=== PATIENT | male | born 1950 | race Caucasian/White ===

== ENCOUNTER 2017-08-28 09:44 | Emergency (ER) | payer MEDICARE, MEDICAID ==
[~2017-08-28] VITALS: Ht 185.4 cm; Wt 147.0 kg
[2017-08-28] MEDS ORDERED: NS IV 500 ML 500 ML IV ONE (10:02)
--- NOTE | 2017-08-28 10:14 | ED GI ---
General Chief Complaint: Abdominal/GI Problems Stated Complaint: NAUSEA Source of Information: Patient, EMS Exam Limitations: No Limitations History of Present Illness Date Seen by Provider: Aug 28, 2017 Time Seen by Provider: 09:55 Initial Comments Patient presents the ER by EMS with chief complaint that while he was at home where he lives alone this morning he ate breakfast correa and eggs and toast and take his medications and then felt a strong wave of nausea. He did not vomit. He has a history of having his stomach stapled so vomiting is very tough for him. He says about time he got into the truck with EMS to come to the ER though the nausea had subsided. He does not have any nausea medicine at home and does not typically have this. Patient denies any chest pain however he did say he had increased shortness of breath. He has a history of COPD and has home oxygen 2 L by nasal cannula from an oxygen concentrator that he says he'll use for usually half an hour to an hour a day just when he feels he needs it. EMS says his vitals were normal sats were in the low 90s on room air and he did not have a fever. They did not give him any medicine because he did not have any vomiting. Patient states that his swollen red legs are pretty much at baseline for him. He says a few months ago he was taken off his Lasix for the swelling wasn't making any difference. Patient denies any history of coronary disease. Besides COPD he is also a smoker who quit tobacco a year ago but still vapes. He has high blood pressure and a history of hypercholesterolemia. Presently he says he is without nausea or shortness of breath. He typically walks using a cane but cannot be up for a longer period he'll use a walker. He denies any wheezing or cough. No fevers, chills or body aches or malaise. He also denies a history of diabetes. Allergies and Home Medications Allergies Coded Allergies: No Known Drug Allergies (Unverified , 08/28/17) Review of Systems Constitutional: No chills, No diaphoresis, No fever, No malaise EENTM: No Blurred Vision, No Double Vision, No Eye Pain Respiratory: Denies Cough, Shortness of Air, Denies Wheezing Cardiovascular: Denies Chest Pain, Edema, Denies Irregular Heart Rate, Denies Palpitations, Denies Syncope Gastrointestinal: Denies Abdomen Distended, Denies Abdominal Pain, Denies Constipated, Denies Diarrhea, Nausea, Denies Vomiting Genitourinary: Denies Burning, Denies Discharge Musculoskeletal: No back pain, No joint pain Past Zlcolzc-Tybccl-Ekcjyl Hx Patient Social History Recreational Drug Use: No Smoking Status: Current Everyday Smoker Type Used: Cigarettes (vapes) Physical Exam Vital Signs VS - Last 72 Hours, by Label 08/28/17 09:49 Temp 97.0 Pulse 88 Resp 22 B/P (MAP) 155/90 (111) Pulse Ox 93 O2 Delivery Nasal Cannula O2 Flow Rate 2.00 Capillary Refill : General Appearance: WD/WN, no apparent distress HEENT: PERRL/EOMI, TMs normal, pharynx normal (oropharynx is dry) Neck: non-tender, full range of motion, supple, normal inspection Respiratory: chest non-tender, lungs clear, no respiratory distress, no accessory muscle use, decreased breath sounds Cardiovascular: normal peripheral pulses, regular rate, rhythm Peripheral Pulses: 1+ Dorsalis Pedis (R), 1+ Left Dors-Pedis (L), 2+ Radial Pulses (R), 2+ Radial Pulses (L) Gastrointestinal: normal bowel sounds, non tender, soft Extremities: other (bilateral lower extremities are erythematous, swollen 1+ edema and have multiple excoriations and stasis dermatitis ulcers in various states of healing. No discharge or drainage.) Neurologic/Psychiatric: no motor/sensory deficits, alert, normal mood/affect, oriented x 3 Progress/Results/Core Measures Results/Orders Lab Results Laboratory Tests Test 08/28/17 10:05 08/28/17 10:20 Range/Units White Blood Count 10.0 4.3-11.0 10^3/uL Red Blood Count 4.22 L 4.35-5.85 10^6/uL Hemoglobin 10.4 L 13.3-17.7 G/DL Hematocrit 34 L 40-54 % Mean Corpuscular Volume 80 80-99 FL Mean Corpuscular Hemoglobin 25 25-34 PG Mean Corpuscular Hemoglobin Concent 31 L 32-36 G/DL Red Cell Distribution Width 17.4 H 10.0-14.5 % Platelet Count 174 130-400 10^3/uL Mean Platelet Volume 10.0 7.4-10.4 FL Neutrophils (%) (Auto) 69 42-75 % Lymphocytes (%) (Auto) 24 12-44 % Monocytes (%) (Auto) 6 0-12 % Eosinophils (%) (Auto) 1 0-10 % Basophils (%) (Auto) 0 0-10 % Neutrophils # (Auto) 6.9 1.8-7.8 X 10^3 Lymphocytes # (Auto) 2.4 1.0-4.0 X 10^3 Monocytes # (Auto) 0.6 0.0-1.0 X 10^3 Eosinophils # (Auto) 0.1 0.0-0.3 10^3/uL Basophils # (Auto) 0.0 0.0-0.1 10^3/uL Sodium Level 138 135-145 MMOL/L Potassium Level 4.0 3.6-5.0 MMOL/L Chloride Level 101 98-107 MMOL/L Carbon Dioxide Level 26 21-32 MMOL/L Anion Gap 11 5-14 MMOL/L Blood Urea Nitrogen 9 7-18 MG/DL Creatinine 0.85 0.60-1.30 MG/DL Estimat Glomerular Filtration Rate > 60 BUN/Creatinine Ratio 11 Glucose Level 129 H 70-105 MG/DL Calcium Level 8.6 8.5-10.1 MG/DL Magnesium Level 1.7 L 1.8-2.4 MG/DL Total Bilirubin 0.8 0.1-1.0 MG/DL Aspartate Amino Transf (AST/SGOT) 19 5-34 U/L Alanine Aminotransferase (ALT/SGPT) 19 0-55 U/L Alkaline Phosphatase 98 40-136 U/L Troponin I < 0.30 <0.30 NG/ML C-Reactive Protein High Sensitivity 2.56 H 0.00-0.50 MG/DL B-Type Natriuretic Peptide 52.3 <100.0 PG/ML Total Protein 7.1 6.4-8.2 GM/DL Albumin 3.6 3.2-4.5 GM/DL Urine Color YELLOW Urine Clarity CLEAR Urine pH 7 5-9 Urine Specific [place] 1.005 L 1.016-1.022 Urine Protein NEGATIVE NEGATIVE Urine Glucose (UA) NEGATIVE NEGATIVE Urine Ketones NEGATIVE NEGATIVE Urine Nitrite NEGATIVE NEGATIVE Urine Bilirubin NEGATIVE NEGATIVE Urine Urobilinogen 1 NORMAL MG/DL Urine Leukocyte Esterase NEGATIVE NEGATIVE Urine RBC (Auto) NEGATIVE NEGATIVE Urine RBC NONE /HPF Urine WBC NONE /HPF Urine Squamous Epithelial Cells 0-2 /HPF Urine Crystals NONE /LPF Urine Bacteria NEGATIVE /HPF Urine Casts NONE /LPF Urine Mucus NEGATIVE /LPF Urine Culture Indicated NO My Orders Orders - DAVIE MANE Chest Pa/Lat (2 View) (08/28/17 10:02) BNP (08/28/17 10:02) Cbc With Automated Diff (08/28/17 10:02) Comprehensive Metabolic Panel (08/28/17 10:02) Hs C Reactive Protein (08/28/17 10:02) Magnesium (08/28/17 10:02) Troponin I (08/28/17 10:02) Ua Culture If Indicated (08/28/17 10:02) Saline Lock/Iv-Start (08/28/17 10:02) Ns Iv 500 Ml (Sodium Chloride 0.9%) (08/28/17 10:02) Ekg Tracing (08/28/17 10:02) Continuous Ekg Monitoring (08/28/17 10:02) Ua Culture If Indicated (08/28/17 10:16) Albuterol/Ipra Inhalation Soln (Duoneb I (08/28/17 10:30) Svn Sm Volume Nebulizer Rt-Rfs (08/28/17 10:18) Vital Signs/I&O Vital Sign - Last 12Hours 08/28/17 09:49 Temp 97.0 Pulse 88 Resp 22 B/P (MAP) 155/90 (111) Pulse Ox 93 O2 Delivery Nasal Cannula O2 Flow Rate 2.00 Progress Note : Time: 11:05 Progress Note Aseptic vital signs. Isolated wave of nausea with a normal troponin, EKG, liver enzymes, no abdominal pain or Isidro sign. His legs are red and swollen but they 're bilateral so there was some concern for cellulitis but his CRP and white count are not elevated significantly. We'll have him follow-up closely in the next 1-2 weeks with his primary care physician or return to the ER with strict return precautions. He does have a prolonged QTC so will be very cautious using the Zofran. Nausea could also be caused by hypoxia and the patient has dipped down in the upper 80s several times whenever he becomes somnolent. However his nausea came after he got done eating and taking his meds he did not describe that he was sleeping at the time. It's possible a patient's suffering with obesity hypoventilation syndrome versus obstructive sleep apnea and may need outpatient workup for these. ECG Initial ECG Impression Date: Aug 28, 2017 Initial ECG Impression Time: 09:53 Initial ECG Rate: 87 Initial ECG Rhythm: Normal Sinus Initial ECG Intervals: QT (515) Initial ECG Impression: Nonspecific Changes Initial ECG Comparisson: No Previous ECG Available Comment No T-wave elevation or depression. Diagnostic Imaging Diagonstic Imaging: Xray Plain Films/CT/US/NM/MRI: chest (2v) Comments Postoperative changes the cervical spine. No acute cardiopulmonary processes noted. Reviewed: Reviewed by Me Departure Impression Impression: Primary Impression: Nausea alone Disposition: 01 HOME, SELF-CARE Condition: Improved Departure-Patient Inst. Decision time for Depature: 11:08 Referrals: AMINA BREAUX MD (PCP/Family) Primary Care Physician Patient Instructions: Nausea and Vomiting, Adult Add. Discharge Instructions: Please follow up with your primary care physician in the next 1-2 weeks. When you see him discuss whether or not you need a sleep study or other workup for OHS/NICKI. If you are having nausea again you can take one tablet of Zofran place it on your tongue allowed to absorb your mouth every 8 hours as needed. If you begin to have fevers chills, chest pain, shortness of breath or other worrisome symptoms please return to the ER immediately. All discharge instructions reviewed with patient and/or family. Voiced understanding. Scripts Ondansetron (Ondansetron Odt) 4 Mg Tab.rapdis 4 MG PO Q6H Y for NAUSEA/VOMITING, #8 TAB 0 Refills Prov: DAVIE MANE 08/28/17 Copy Copies To 1: AMINA BREAUX MD, TITUS J Aug 28, 2017 10:14
[2017-08-28 10:15] LABS: BASOPHILS % (AUTO) 0 % (0-10); EOSINOPHILS # (AUTO) 0.1 10^3/uL (0.0-0.3); EOSINOPHILS % (AUTO) 1 % (0-10); HEMATOCRIT 34 % (40-54); HEMOGLOBIN 10.4 G/DL (13.3-17.7); LYMPHOCYTES # (AUTO) 2.4 X 10^3 (1.0-4.0); LYMPHOCYTES % (AUTO) 24 % (12-44); MEAN CORPUSCULAR HEMOGLOBIN 25 PG (25-34); MEAN CORPUSCULAR HGB CONC 31 G/DL (32-36); MEAN CORPUSCULAR VOLUME 80 FL (80-99); MONOCYTES # (AUTO) 0.6 X 10^3 (0.0-1.0); MONOCYTES % (AUTO) 6 % (0-12); NEUTROPHILS # (AUTO) 6.9 X 10^3 (1.8-7.8); NEUTROPHILS % (AUTO) 69 % (42-75); PLATELET COUNT 174 10^3/uL (130-400); RED BLOOD COUNT 4.22 10^6/uL (4.35-5.85); RED CELL DISTRIBUTION WIDTH 17.4 % (10.0-14.5)
[2017-08-28 10:28] LABS: BILIRUBIN,URINE NEGATIVE (NEGATIVE); CLARITY,URINE CLEAR; COLOR,URINE YELLOW; GLUCOSE, URINE (UA) NEGATIVE (NEGATIVE); KETONES,URINE NEGATIVE (NEGATIVE); LEUKOCYTE ESTERASE ,URINE NEGATIVE (NEGATIVE); NITRITE,URINE NEGATIVE (NEGATIVE); PH,URINE 7 (5-9); PROTEIN,URINE NEGATIVE (NEGATIVE); UROBILINOGEN,URINE 1 MG/DL (NORMAL)
[2017-08-28] MEDS ORDERED: RT-ALBUTEROL/IPRATROPIUM 3 ML (DUONEB) VIAL INH ONE (10:30)
[2017-08-28 10:35] LABS: BACTERIA,URINE NEGATIVE /HPF; SQUAMOUS EPITHELIAL CELL,UR 0-2 /HPF
[2017-08-28 10:40] LABS: ALANINE AMINOTRANSFERASE 19 U/L (0-55); ALBUMIN 3.6 GM/DL (3.2-4.5); ALKALINE PHOSPHATASE 98 U/L (40-136); BILIRUBIN,TOTAL 0.8 MG/DL (0.1-1.0); BUN/CREATININE RATIO 11; CALCIUM 8.6 MG/DL (8.5-10.1); CARBON DIOXIDE 26 MMOL/L (21-32); CHLORIDE 101 MMOL/L (98-107); CREATININE SERUM 0.85 MG/DL (0.60-1.30); GFR ESTIMATED > 60; GLUCOSE 129 MG/DL (70-105); MAGNESIUM 1.7 MG/DL (1.8-2.4); SODIUM 138 MMOL/L (135-145); TOTAL PROTEIN 7.1 GM/DL (6.4-8.2)
--- NOTE | 2017-08-28 11:07 | Diagnostic Imaging Report ---
INDICATION: Shortness of breath. COMPARISON: None available. FINDINGS: The heart is mildly enlarged. No focal airspace consolidation or evidence of pulmonary edema. No pleural effusion or pneumothorax. Partial imaged anterior and posterior fixation in the cervical spine. IMPRESSION: No acute cardiopulmonary process. Dictated by: Dictated on workstation # [id number]
[2017-08-28] MEDS ORDERED: ONDA4TAB11 PO (11:12)
[2017-08-28 11:48] VITALS: BP 118/71
== END 2017-08-28 11:48 | disposition home or self-care (01) ==
LOC: EDUNIT# 09:44 → ER 09:46
DX: R11.0 Nausea (principal); J44.9 Chronic obstructive pulmonary disease, unspecified; F17.210 Nicotine dependence, cigarettes, uncomplicated
CPT/HCPCS: 36415; 71046; 80053; 81000; 83735; 83880; 84484; 85025; 86141; 93005; 94640; 96360

== ENCOUNTER 2019-03-27 15:51 | Emergency (ER) | payer MEDICARE, MEDICAID ==
[~2019-03-27] VITALS: Ht 187 cm; Wt 140.0 kg
[~2019-03-27 15:51] MED LIST: ONDA4TAB11 PO
[2019-03-27 16:24] LABS: BASOPHILS # (AUTO) 0.1 10^3/uL (0.0-0.1); BASOPHILS % (AUTO) 0 % (0-10); EOSINOPHILS # (AUTO) 0.1 10^3/uL (0.0-0.3); EOSINOPHILS % (AUTO) 1 % (0-10); HEMATOCRIT 35 % (40-54); HEMOGLOBIN 10.4 G/DL (13.3-17.7); LYMPHOCYTES # (AUTO) 4.1 X 10^3 (1.0-4.0); LYMPHOCYTES % (AUTO) 36 % (12-44); MEAN CORPUSCULAR HEMOGLOBIN 24 PG (25-34); MEAN CORPUSCULAR HGB CONC 30 G/DL (32-36); MEAN CORPUSCULAR VOLUME 81 FL (80-99); MEAN PLATELET VOLUME 9.4 FL (7.4-10.4); MONOCYTES # (AUTO) 0.5 X 10^3 (0.0-1.0); MONOCYTES % (AUTO) 5 % (0-12); NEUTROPHILS # (AUTO) 6.7 X 10^3 (1.8-7.8); NEUTROPHILS % (AUTO) 58 % (42-75); PLATELET COUNT 217 10^3/uL (130-400); RED CELL DISTRIBUTION WIDTH 17.9 % (10.0-14.5); WHITE BLOOD COUNT 11.5 10^3/uL (4.3-11.0)
[2019-03-27 16:35] LABS: ALANINE AMINOTRANSFERASE 14 U/L (0-55); ALBUMIN 3.7 GM/DL (3.2-4.5); ALKALINE PHOSPHATASE 118 U/L (40-136); BILIRUBIN,TOTAL 0.7 MG/DL (0.1-1.0); BUN/CREATININE RATIO 12; CALCIUM 8.8 MG/DL (8.5-10.1); CARBON DIOXIDE 33 MMOL/L (21-32); CHLORIDE 99 MMOL/L (98-107); CREATININE SERUM 0.86 MG/DL (0.60-1.30); GFR ESTIMATED > 60; GLUCOSE 139 MG/DL (70-105); POTASSIUM 4.3 MMOL/L (3.6-5.0); SODIUM 138 MMOL/L (135-145); TOTAL PROTEIN 7.5 GM/DL (6.4-8.2)
[2019-03-27] MEDS ORDERED: LORA1TAB (16:52)
[2019-03-27] MEDS ORDERED: DOXA8TAB73 (16:52)
[2019-03-27] MEDS ORDERED: VENL150C98 (16:52)
[2019-03-27] MEDS ORDERED: METH10TA2 (16:52)
[2019-03-27] MEDS ORDERED: FURO40TA4 (16:52)
[2019-03-27] MEDS ORDERED: POTA20TA15 (16:52)
[2019-03-27] MEDS ORDERED: CLON0.5T13 (16:52)
[2019-03-27] MEDS ORDERED: ATOR10TA66 (16:52)
[2019-03-27] MEDS ORDERED: LOSA100T57 (16:52)
[2019-03-27] MEDS ORDERED: AMLO5TAB9 (16:52)
--- NOTE | 2019-03-27 17:23 | Diagnostic Imaging Report ---
INDICATION: Bilateral foot pain. COMPARISON: None. FINDINGS: Multiple views of bilateral feet demonstrate mild degenerative changes throughout most of the articular surfaces. There is no traumatic malalignment or fracture. No foreign body seen. There is no soft tissue gas. IMPRESSION: 1. Degenerative joint disease most pronounced involving the right first metatarsophalangeal joint. 2. No fracture or dislocation. Dictated by: Dictated on workstation # [id number]
[2019-03-27] MEDS ORDERED: cefTRIAXone FOR IV USE 1,000 MG in WATER (STERILE) FOR INJECTION 10 ML IV ONE (17:45)
[2019-03-27] MEDS ORDERED: CEPH-507 PO (18:11)
--- NOTE | 2019-03-27 18:11 | ED Lower Extremity ---
General Chief Complaint: Lower Extremity Stated Complaint: SORES ON FEET Nursing Triage Note: PT PRESENTS TO ED WITH COMPLAINTS OF BLISTERS AND REDNESS ON TOES AND BILATERAL FEET AND CALVES. PT REPORTS HE RECENTLY CHANGED HIS SHOES AND THINKS HIS SHOES ARE CAUSING THE BLISTERS. PT REPORTS HE NOTICED THE SORES ABOUT 1-2 WEEKS AGO. Nursing Sepsis Screen: No Definite Risk Source: patient, EMS Exam Limitations: no limitations History of Present Illness Date Seen by Provider: Mar 27, 2019 Time Seen by Provider: 16:00 Initial Comments This 69-year-old gentleman presents to the emergency room via EMS with concerns about swelling, pain, and sores on his lower extremities, especially his feet. He notice these changes developing about one to 2 weeks ago when he started wearing a new or a cloth shoes. The shoes rubbed against his feet and caused irritation. He has extensive erythema to the toes and dorsal aspect of his feet bilaterally. Additionally he has sores on the right lower leg. Some areas of skin are moist. He retains sensation. His feet are not intensely painful. He is afebrile. Allergies and Home Medications Allergies Coded Allergies: No Known Drug Allergies (Unverified , 08/28/17) Home Medications Cephalexin 500 Mg Capsule, 500 MG PO QID Prescribed by: JERMAIN HARPER on 03/27/19 181 Ondansetron 4 Mg Tab.rapdis, 4 MG PO Q6H PRN for NAUSEA/VOMITING Prescribed by: DAVIE MANE on 08/28/17 1112 Patient Home Medication List Home Medication List Reviewed: Yes Review of Systems Constitutional: no symptoms reported EENTM: no symptoms reported Respiratory: no symptoms reported Cardiovascular: no symptoms reported Gastrointestinal: no symptoms reported Genitourinary: no symptoms reported Musculoskeletal: see HPI Skin: see HPI Psychiatric/Neurological: No Symptoms Reported Past Sahtglg-Ngdqzq-Jzjahg Hx Past Med/Social Hx: Reviewed and Corrections made Patient Social History Alcohol Use: Denies Use Recreational Drug Use: No Smoking Status: Current Everyday Smoker Type Used: Cigarettes, Electronic/Vapor Recent Foreign Travel: No Contact w/Someone Who Travel: No Recent Infectious Disease Expo: No Recent Hopitalizations: No Physical Abuse: No Sexual Abuse: No Mistreated: No Fear: No Seasonal Allergies Seasonal Allergies: No Past Medical History Surgeries: Yes (2 ON BACK, NECK) Appendectomy, Tonsillectomy Respiratory: Yes COPD Cardiac: Yes Hypertension Neurological: No Genitourinary: Yes Prostate Problems Gastrointestinal: No Musculoskeletal: Yes Chronic Back Pain Endocrine: No HEENT: No Cancer: No Psychosocial: No Integumentary: Yes (WOUNDS ON FEET AND CALVES) Blood Disorders: No Adverse Reaction/Blood Tranf: No Physical Exam Vital Signs Vital Signs - First Documented 03/27/19 03/27/19 16:13 18:20 Temp 37.2 Pulse 98 Resp 20 B/P (MAP) 151/82 (105) Pulse Ox 96 O2 Delivery Room Air Capillary Refill : Less Than 3 Seconds Height, Weight, BMI Height: 6'1.00" Weight: 324lbs. oz. 146.793586sm; 40.00 BMI Method:Stated General Appearance: WD/WN, no apparent distress, obese HEENT: normal ENT inspection Neck: normal inspection Cardiovascular: regular rate, rhythm, no edema, no murmur Respiratory: lungs clear, normal breath sounds, no respiratory distress, no accessory muscle use Gastrointestinal: normal bowel sounds, non tender, soft Legs: bilateral leg other (Erythematous skin changes to be lower legs bilaterally. 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, no motor/sensory deficits, alert, normal mood/affect, oriented x 3 Skin: normal color, warm/dry Progress/Results/Core Measures Results/Orders Lab Results Laboratory Tests Test 03/27/19 16:02 Range/Units White Blood Count 11.5 H 4.3-11.0 10^3/uL Red Blood Count 4.30 L 4.35-5.85 10^6/uL Hemoglobin 10.4 L 13.3-17.7 G/DL Hematocrit 35 L 40-54 % Mean Corpuscular Volume 81 80-99 FL Mean Corpuscular Hemoglobin 24 L 25-34 PG Mean Corpuscular Hemoglobin Concent 30 L 32-36 G/DL Red Cell Distribution Width 17.9 H 10.0-14.5 % Platelet Count 217 130-400 10^3/uL Mean Platelet Volume 9.4 7.4-10.4 FL Neutrophils (%) (Auto) 58 42-75 % Lymphocytes (%) (Auto) 36 12-44 % Monocytes (%) (Auto) 5 0-12 % Eosinophils (%) (Auto) 1 0-10 % Basophils (%) (Auto) 0 0-10 % Neutrophils # (Auto) 6.7 1.8-7.8 X 10^3 Lymphocytes # (Auto) 4.1 H 1.0-4.0 X 10^3 Monocytes # (Auto) 0.5 0.0-1.0 X 10^3 Eosinophils # (Auto) 0.1 0.0-0.3 10^3/uL Basophils # (Auto) 0.1 0.0-0.1 10^3/uL Sodium Level 138 135-145 MMOL/L Potassium Level 4.3 3.6-5.0 MMOL/L Chloride Level 99 98-107 MMOL/L Carbon Dioxide Level 33 H 21-32 MMOL/L Anion Gap 6 5-14 MMOL/L Blood Urea Nitrogen 10 7-18 MG/DL Creatinine 0.86 0.60-1.30 MG/DL Estimat Glomerular Filtration Rate > 60 BUN/Creatinine Ratio 12 Glucose Level 139 H 70-105 MG/DL Calcium Level 8.8 8.5-10.1 MG/DL Corrected Calcium 9.0 8.5-10.1 MG/DL Total Bilirubin 0.7 0.1-1.0 MG/DL Aspartate Amino Transf (AST/SGOT) 15 5-34 U/L Alanine Aminotransferase (ALT/SGPT) 14 0-55 U/L Alkaline Phosphatase 118 40-136 U/L C-Reactive Protein High Sensitivity 4.27 H 0.00-0.50 MG/DL Total Protein 7.5 6.4-8.2 GM/DL Albumin 3.7 3.2-4.5 GM/DL My Orders Orders - JERMAIN SMALL MD Cbc With Automated Diff (03/27/19 16:14) Comprehensive Metabolic Panel (03/27/19 16:14) Hs C Reactive Protein (03/27/19 16:14) Ed Iv/Invasive Line Start (03/27/19 16:14) Foot, Bilateral, 2 Views (03/27/19 16:14) Ed Iv/Invasive Line Start (03/27/19 16:14) General/Regular (03/27/19 Dinner) Ceftriaxone For Iv Use (Rocephin For I (03/27/19 17:45) Medications Given in ED Current Medications Medications Dose Ordered Sig/Mateusz Route Start Time Stop Time Status Last Admin Dose Admin Ceftriaxone Sodium 1000 mg/ Sterile Water 10 ml @ 200 mls/hr ONCE ONCE IV 03/27/19 17:45 03/27/19 17:47 DC 03/27/19 17:51 200 MLS/HR Vital Signs/I&O 03/27/19 03/27/19 16:13 18:20 Temp 37.2 37.2 Pulse 98 90 Resp 20 20 B/P (MAP) 151/82 (105) 146/81 (105) Pulse Ox 96 96 O2 Delivery Room Air Blood Pressure Mean: 105 Progress Progress Note : Progress Note Labs and x-ray were reviewed. There were no significant abnormalities. Patient was treated with Rocephin for cellulitis. We discussed the need for wound care and proper foot wear. See discharge instructions. Diagnostic Imaging Diagonstic Imaging: Xray Plain Films/CT/US/NM/MRI: other (bilateral feet) Comments Viewed by me and report reviewed. See report: NAME: [facility] REC#: [id number] PT STATUS: REG ER : 1950 PHYSICIAN: JERMAIN SMALL MD ADMIT DATE: 03/27/19/ER Signed Date of Exam: 03/27/19 FOOT, BILATERAL, 2 VIEWS INDICATION: Bilateral foot pain. COMPARISON: None. FINDINGS: Multiple views of bilateral feet demonstrate mild degenerative changes throughout most of the articular surfaces. There is no traumatic malalignment or fracture. No foreign body seen. There is no soft tissue gas. IMPRESSION: 1. Degenerative joint disease most pronounced involving the right first metatarsophalangeal joint. 2. No fracture or dislocation. Dictated by: Dictated on workstation # [id number] Dict: 03/27/19 1701 Trans: 03/27/19 1726 Interpreted by: BRITNI CLEMENTS Electronically signed by: BRITNI CLEMENTS 03/27/19 1726 Departure Impression Primary Impression: Cellulitis of both feet Disposition: 01 HOME, SELF-CARE Condition: Against Medical Advice Departure-Patient Inst. Decision time for Depature: 18:00 Referrals: AMINA BREAUX MD (PCP/Family) Primary Care Physician Patient Instructions: Cellulitis (Skin Infection), Adult (DC) Add. Discharge Instructions: Complete your antibiotic as prescribed. Follow-up with your primary care provider soon as possible. Please call tomorrow morning for an appointment. Please establish with wound care as soon as possible. Please call them tomorrow morning at [phone]. Avoid using firm or tight footwear. Use something soft and non-restricting such as house shoes. While at rest elevate your feet and leave them open to air. Return to care if you have worsening symptoms, especially if you develop fevers over 100. All discharge instructions reviewed with patient and/or family. Voiced understanding. Scripts Cephalexin (Keflex) 500 Mg Capsule 500 MG PO QID, #40 CAP Prov: JERMAIN SMALL MD 03/27/19 Copy Copies To 1: AMINA BREAUX MD Copies To 2: NATASHA RAMACHANDRAN MD, JOSHUA T MD Mar 27, 2019 18:11
[2019-03-27 18:20] VITALS: BP 146/81
== END 2019-03-27 18:20 | disposition home or self-care (01) ==
LOC: EDUNIT# 15:51 → ER 15:55
DX: L03.115 Cellulitis of right lower limb (principal); L03.116 Cellulitis of left lower limb; I10 Essential (primary) hypertension; J44.9 Chronic obstructive pulmonary disease, unspecified; F17.210 Nicotine dependence, cigarettes, uncomplicated; F17.290 Nicotine dependence, other tobacco product, uncomplicated; Z90.49 Acquired absence of other specified parts of digestive tract; Z90.89 Acquired absence of other organs
CPT/HCPCS: 36415; 80053; 85025; 86141

== ENCOUNTER 2019-05-16 16:14 | Emergency (ER) | payer MEDICARE, MEDICAID ==
[~2019-05-16] VITALS: Ht 187.9 cm; Wt 120.0 kg
[~2019-05-16 16:14] MED LIST changes: +AMLO5TAB9; +ATOR10TA66; +CEPH-507 PO; +CLON0.5T4; +DOXA8TAB73; +FURO40TA4; +LORA1TAB; +LOSA100T57; +METH10TA2; +POTA20TA15; +VENL150C98
[2019-05-16 16:16] VITALS: BP 159/91
== END 2019-05-16 16:52 | disposition left against medical advice (07) ==
LOC: EDUNIT# 16:14 → ER 16:15
DX: M25.552 Pain in left hip (principal); W19.XXXA Unspecified fall, initial encounter
CPT/HCPCS: 99283